=== PATIENT | female | born 1995 | race Two or more races ===

== ENCOUNTER 2025-04-01 17:55 | Emergency (ER) | payer OTHER ==
[~2025-04-01] VITALS: Ht 162.6 cm; Wt 46.7 kg
[2025-04-01 19:04] VITALS: BP 124/68; TEMP 98.7; O2SAT 96
== END 2025-04-01 19:04 | disposition home or self-care (01) ==
LOC: ER 18:02
DX: S66.911A Strain of unspecified muscle, fascia and tendon at wrist and hand level, right hand, initial encounter (principal); M25.511 Pain in right shoulder; M25.521 Pain in right elbow; M25.531 Pain in right wrist; F17.200 Nicotine dependence, unspecified, uncomplicated; Z60.2 Problems related to living alone; W18.39XA Other fall on same level, initial encounter; Y93.89 Activity, other specified; Y92.89 Other specified places as the place of occurrence of the external cause; Y99.8 Other external cause status
CPT/HCPCS: 73080-TC; 73110